=== PATIENT | female | born 1975 | race Caucasian/White ===

== ENCOUNTER 2016-08-03 19:16 | Emergency (ER) | payer MEDICAID ==
[2016-08-03] MEDS ORDERED: LORazepam 0.5 MG TABLET PO STA (21:15)
[2016-08-03] MEDS ORDERED: LORazepam 0.5 MG TABLET ONE (21:20)
[2016-08-03] MEDS ORDERED: POTASSIUM BICARB 25 MEQ TABLET PO STA (22:11)
[2016-08-03] MEDS ORDERED: POTASSIUM BICARB 25 MEQ TABLET PO ONE (22:11)
== END 2016-08-03 22:20 | disposition home or self-care (01) ==
DX: R07.9 Chest pain, unspecified (principal); E87.6 Hypokalemia; F41.9 Anxiety disorder, unspecified
CPT/HCPCS: 36415; 71010; 80053; 83690; 84484; 85025; 93005; 93010; 99283; 99284; A9270

== ENCOUNTER 2017-11-19 20:34 | Emergency (ER) | payer MEDICAID ==
[2017-11-19] MEDS ORDERED: methylPREDNISolone SUCCINATE 125 MG/2 ML VIAL IVP STA (20:44)
--- NOTE | 2017-11-19 20:45 | ED Physician Documentation ---
History of Present Illness - Stated complaint Stated Complaint: SOA/ALLERGIC REACTION - Chief complaint Chief Complaint: Allergic Rx - History obtained from History obtained from: Patient, Family - History of Present Illness Timing: Today Pain level max: 0 Pain level now: 0 Improved by: benadryl Worsened by: eating cherries - Additonal information Additional information: Patient is a 42-year-old female who presents to the emergency department stating that she feels short of breath and like her throat is swelling after eating cherries tonight. Has never had this reaction to cherries in the past. Did have a similar reaction to peaches in the past. Took Benadryl prior to arrival. Review of Systems Constitutional: denies: Fever, Chills Nose: denies: Rhinorrhea / runny nose, Congestion GI: denies: Vomiting, Diarrhea Skin: denies: Rash Musculoskeletal: denies: Neck pain, Back pain Neurologic: denies: Headache PD PAST MEDICAL HISTORY - Past Medical History Cardiovascular: None Respiratory: None Endocrine/Autoimmune: None GI: None DATAPOWER DEVELOPER: None : None HEENT: None Psych: Anxiety Musculoskeletal: None Derm: None - Past Surgical History Past Surgical History: Yes General: Cholecystectomy /DATAPOWER DEVELOPER: section - Present Medications Home Medications: Ambulatory Orders Medication Instructions Recorded Confirmed LORazepam [Ativan] 0.5 - 1 mg PO Q8HR PRN #14 tablet 08/03/16 predniSONE [Prednisone] 40 mg PO DAILY #6 tablet 11/19/17 - Allergies Allergies/Adverse Reactions: Allergies Allergy/AdvReac Type Severity Reaction Status Date / Time Sulfa (Sulfonamide Allergy Intermediate Hives Verified 11/19/17 20:42 Antibiotics) - Social History Does the pt smoke?: No Smoking Status: Never smoker Does the pt drink ETOH?: Yes Does the pt have substance abuse?: No - Immunizations Immunizations are current?: Yes - POLST Patient has POLST: No PD ED PE NORMAL - Vitals Vital signs reviewed: Yes - General General: Alert and oriented X 3, No acute distress - HEENT HEENT: Moist mucous membranes, Dentition benign - Neck Neck: Supple, no meningeal sign - Cardiac Cardiac: RRR, Strong equal pulses - Respiratory Respiratory: No respiratory distress, Clear bilaterally, Other (no stridor or wheezing.) - Abdomen Abdomen: Soft, Non tender, Non distended - Derm Derm: Warm and dry, No rash - Extremities Extremities: No edema, No calf tenderness / cord - Neuro Neuro: Alert and oriented X 3 - Psych Psych: Normal mood, Normal affect Results - Vitals Vitals: Vital Signs - 24 hr 11/19/17 11/19/17 11/19/17 20:39 21:05 21:49 Temperature 36.2 C L 36.7 C Heart Rate 118 H 83 75 Respiratory 18 16 18 Rate Blood Pressure 156/110 H 115/58 L 122/74 O2 Saturation 100 99 98 Oxygen O2 Source Room air PD MEDICAL DECISION MAKING - ED course Complexity details: re-evaluated patient, considered differential, d/w patient ED course: Patient is a 42-year-old female with what appears to be an allergic reaction to chersophie johnson. Took Benadryl prior to arrival. Given steroids here. Monitored in the emergency department without a recurrence of symptoms. No stridor or wheezing. No respiratory distress. Will continue supportive care and follow-up with her doctor. Will place her on steroids for the next few days as this was an ingested substance. Patient counseled regarding signs and symptoms for which I believe and urgent re-evaluation would be necessary. Patient with good understanding of and agreement to plan and is comfortable going home at this time This document was made in part using voice recognition software. While efforts are made to proofread this document, sound alike and grammatical errors may occur. Departure - Departure Disposition: 01 Home, Self Care Clinical Impression: Allergic reaction Qualifiers: Encounter type: initial encounter Qualified Code(s): T78.40XA - Allergy, unspecified, initial encounter Condition: Good Instructions: ED Allergic Reaction General Other Follow-Up: your,doctor in1 week [Other] Prescriptions: predniSONE [Prednisone] 40 mg PO DAILY #6 tablet Comments: Return if you worsen, Continue benadryl at home as well. Discharge Date/Time: 11/19/17 21:49
[2017-11-19 21:50] VITALS: BP 122/74
== END 2017-11-19 21:49 | disposition home or self-care (01) ==
LOC: ED 20:34
DX: T78.40XA Allergy, unspecified, initial encounter (principal); X58.XXXA Exposure to other specified factors, initial encounter
CPT/HCPCS: 96374; 99283

== ENCOUNTER 2017-12-17 23:29 | Outpatient (CLI) | payer MEDICAID | END 2017-12-17 23:59 | disposition critical access hospital (66) | LOC: EMS 23:29 | PROVIDERS: ATTEND Surgery | DX: R61 Generalized hyperhidrosis (principal) | CPT/HCPCS: A0425; A0429 ==

== ENCOUNTER 2017-12-17 23:43 | Emergency (ER) | payer MEDICAID ==
[2017-12-18 00:11] LABS: BASOPHILS # (AUTO) 0.1 10^3/uL (0.0-0.1); BASOPHILS % (AUTO) 1.1 %; EOSINOPHILS # (AUTO) 0.4 10^3/uL (0.0-0.7); EOSINOPHILS % (AUTO) 4.1 %; HGB - HEMOGLOBIN 11.9 g/dL (12.0-16.0); LYMPHOCYTES # (AUTO) 2.2 10^3/uL (1.5-3.5); LYMPHOCYTES % (AUTO) 25.5 %; MEAN CORPUSCULAR HEMOGLOBIN 31.7 pg (27.0-31.0); MEAN CORPUSCULAR HGB CONC 33.2 g/dL (32.0-36.0); MEAN CORPUSCULAR VOLUME 95.4 fL (81.0-99.0); MEAN PLATELET VOLUME 8.9 fL (7.9-10.8); MONOCYTES # (AUTO) 0.8 10^3/uL (0.0-1.0); MONOCYTES % (AUTO) 8.9 %; NEUTROPHILS # (AUTO) 5.3 10^3/uL (1.5-6.6); NEUTROPHILS % (AUTO) 60.4 %; PLT - PLATELET COUNT 276 10^3/uL (130-450); RED BLOOD COUNT 3.74 10^6/uL (4.20-5.40); RED CELL DISTRIBUTION WIDTH 12.7 % (12.0-15.0); WHITE BLOOD COUNT 8.7 x10^3/uL (4.8-10.8)
[2017-12-18 00:21] LABS: ALBUMIN 3.4 g/dL (3.2-5.5); ALBUMIN/GLOBULIN RATIO 1.1 (1.0-2.2); BILIRUBIN,TOTAL 0.4 mg/dL (0.2-1.0); CALCIUM 8.5 mg/dL (8.5-10.3); CREATININE 0.6 mg/dL (0.4-1.0); TOTAL PROTEIN 6.5 g/dL (6.7-8.2)
[2017-12-18] MEDS ORDERED: POTASSIUM BICARB 25 MEQ TABLET PO STA (00:40)
--- NOTE | 2017-12-18 00:53 | ED Physician Documentation ---
History of Present Illness - Stated complaint Stated Complaint: ALLERGIC REACTION, STRESS ANXIETY - Chief complaint Chief Complaint: General - History obtained from History obtained from: Patient, EMS - History of Present Illness Timing: Today - Additonal information Additional information: Patient is a 42 year old female with a history of anxiety who is presenting to the emergency department for an episode of dizziness, flushing and throat pressure. According to patient and ems patient had a flew glasses of wine this evening. patient subsequently experienced an episode where she felt flushed and dizzy. Patient also felt like her throat was closing. patient called a friend who stated she was breathing quickly. The friend called ems. Upon their arrival patient was feeling a bit better but wanted to get checked out. Upon my initial evaluation patient was well appearing in no distress. Review of Systems Ten Systems: 10 systems reviewed and negative Constitutional: denies: Fever, Chills Cardiac: reports: Palpitations Respiratory: denies: Dyspnea, Cough, Wheezing GI: denies: Nausea, Vomiting Psychiatric: reports: Anxiety PD PAST MEDICAL HISTORY - Past Medical History Past Medical History: Yes Cardiovascular: None Respiratory: None Endocrine/Autoimmune: None GI: Cholelithiasis FIRMWARE MANAGER: None : None HEENT: None Psych: Anxiety Musculoskeletal: None Derm: None - Past Surgical History Past Surgical History: Yes General: Cholecystectomy /FIRMWARE MANAGER: section - Allergies Allergies/Adverse Reactions: Allergies Allergy/AdvReac Type Severity Reaction Status Date / Time Sulfa (Sulfonamide Allergy Intermediate Hives Verified 12/17/17 23:48 Antibiotics) - Social History Does the pt smoke?: No Smoking Status: Never smoker Does the pt drink ETOH?: Yes Does the pt have substance abuse?: No - Immunizations Immunizations are current?: Yes - POLST Patient has POLST: No PD ED PE NORMAL - Vitals Vital signs reviewed: Yes - General General: Alert and oriented X 3, No acute distress, Well developed/nourished - HEENT HEENT: Atraumatic, PERRL, Other (no soft palate swelling) - Neck Neck: No JVD - Cardiac Cardiac: RRR, No murmur - Respiratory Respiratory: No respiratory distress - Abdomen Abdomen: Soft - Derm Derm: Normal color, Warm and dry - Extremities Extremities: No deformity, No edema, No calf tenderness / cord - Neuro Neuro: Alert and oriented X 3, No motor deficit, Normal speech Eye Opening: Spontaneous Motor: Obeys Commands Verbal: Oriented GCS Score: 15 - Psych Psych: Normal mood Results - Vitals Vitals: Vital Signs - 24 hr 12/17/17 12/18/17 23:44 00:47 Temperature 36.7 C Heart Rate 98 83 Respiratory 16 24 Rate Blood Pressure 135/87 H 124/90 H O2 Saturation 100 100 Oxygen O2 Source Room air - EKG (time done) 2351 Rate: Rate (enter#) (89) Rhythm: NSR [place]: Normal Intervals: Normal DC QRS: Normal Ischemia: Normal ST segments - Labs Labs: Laboratory Tests 12/18/17 12/18/17 12/18/17 00:00 00:00 00:00 WBC 8.7 RBC 3.74 L Hgb 11.9 L Hct 35.7 L MCV 95.4 MCH 31.7 H MCHC 33.2 RDW 12.7 Plt Count 276 MPV 8.9 Neut # (Auto) 5.3 Lymph # (Auto) 2.2 [place] # (Auto) 0.8 Eos # (Auto) 0.4 Baso # (Auto) 0.1 Absolute Nucleated RBC 0.00 Nucleated RBC % 0.0 Sodium 136 Potassium 2.8 L Chloride 104 Carbon Dioxide 23 Anion Gap 9.0 BUN 16 Creatinine 0.6 Estimated GFR (MDRD) 109 Glucose 102 H Calcium 8.5 Total Bilirubin 0.4 AST 19 ALT 27 Alkaline Phosphatase 111 Troponin I < 0.04 Total Protein 6.5 L Albumin 3.4 Globulin 3.1 Albumin/Globulin Ratio 1.1 Lipase 27 TSH Ethyl Alcohol 14.2 12/18/17 00:00 WBC RBC Hgb Hct MCV MCH MCHC RDW Plt Count MPV Neut # (Auto) Lymph # (Auto) [place] # (Auto) Eos # (Auto) Baso # (Auto) Absolute Nucleated RBC Nucleated RBC % Sodium Potassium Chloride Carbon Dioxide Anion Gap BUN Creatinine Estimated GFR (MDRD) Glucose Calcium Total Bilirubin AST ALT Alkaline Phosphatase Troponin I Total Protein Albumin Globulin Albumin/Globulin Ratio Lipase TSH 6.21 H Ethyl Alcohol PD MEDICAL DECISION MAKING - ED course Complexity details: reviewed old records, reviewed results, re-evaluated patient , considered differential, d/w patient, d/w family ED course: patient was seen and examined at bedside. ekg was performed and was within normal limits. labs were drawn. patient was found to have slightly low potassium but no ekg changes. patient's potassium was replaced. patient had a slightly elevated tsh, which would not acute for her symptoms. Patient was made aware of the findings. patient continued to be well appearing and required no further work up. Patient was stable for discharge with outpatient follow up. - Sepsis Event Vital Signs: Vital Signs - 24 hr 12/17/17 12/18/17 23:44 00:47 Temperature 36.7 C Heart Rate 98 83 Respiratory 16 24 Rate Blood Pressure 135/87 H 124/90 H O2 Saturation 100 100 Oxygen O2 Source Room air Departure - Departure Disposition: 01 Home, Self Care Clinical Impression: Dizziness, Hypokalemia Condition: Good Instructions: Hypokalemia Dc Follow-Up: primary,care provider [Other] Comments: Your diagnostics today were mostly within normal limits. Your potassium was slightly low, and your thyroid hormone levels are slightly low. It is important that you eat a high potassium diet. It is difficult to say what caused your symptoms exactly, it could be the alcohol, anxiety, perimenipausal or combination of multiple things. You should follow up with your doctor this week. You may return to the emergency department at any time for new, worsening or uncontrollable symptoms.
[2017-12-18 01:04] VITALS: BP 117/77
== END 2017-12-18 01:08 | disposition home or self-care (01) ==
LOC: EDUNIT# → ED 23:43
DX: E87.6 Hypokalemia (principal); R42 Dizziness and giddiness
CPT/HCPCS: 36415; 80053; 80320; 83690; 84443; 84484; 85025; 93005; 99283; A9270

== ENCOUNTER 2018-01-05 08:00 | Outpatient (CLI) | payer MEDICAID ==
[2018-01-05 12:31] LABS: BASOPHILS % (AUTO) 0.8 %; EOSINOPHILS # (AUTO) 0.3 10^3/uL (0.0-0.7); EOSINOPHILS % (AUTO) 5.3 %; HGB - HEMOGLOBIN 12.6 g/dL (12.0-16.0); LYMPHOCYTES % (AUTO) 32.4 %; MEAN CORPUSCULAR HEMOGLOBIN 32.2 pg (27.0-31.0); MEAN CORPUSCULAR HGB CONC 33.2 g/dL (32.0-36.0); MEAN CORPUSCULAR VOLUME 96.9 fL (81.0-99.0); MEAN PLATELET VOLUME 9.9 fL (7.9-10.8); MONOCYTES # (AUTO) 0.4 10^3/uL (0.0-1.0); NEUTROPHILS # (AUTO) 3.3 10^3/uL (1.5-6.6); NEUTROPHILS % (AUTO) 54.5 %; PLT - PLATELET COUNT 250 10^3/uL (130-450); RED BLOOD COUNT 3.93 10^6/uL (4.20-5.40); RED CELL DISTRIBUTION WIDTH 12.9 % (12.0-15.0); WHITE BLOOD COUNT 6.1 x10^3/uL (4.8-10.8)
[2018-01-05 12:42] LABS: ALBUMIN 3.5 g/dL (3.2-5.5); ALKALINE PHOSPHATASE 107 IU/L (42-121); ALT ALANINE AMINOTRANSFERASE 16 IU/L (10-60); AST ASPARTATE AMINOTRANSFERASE 16 IU/L (10-42); BILIRUBIN,TOTAL 0.7 mg/dL (0.2-1.0); BUN - BLOOD UREA NITROGEN 16 mg/dL (6-20); CALCIUM 8.6 mg/dL (8.5-10.3); CARBON DIOXIDE - CO2 28 mmol/L (21-32); CHLORIDE 105 mmol/L (101-111); CHOLESTEROL 204 mg/dL; CREATININE 0.7 mg/dL (0.4-1.0); GFR - MDRD 91 (>89); GLUCOSE 97 mg/dL (70-100); HDL CHOLESTEROL 67 mg/dL; LDL CHOLESTEROL,CALCULATED 120 mg/dL; LDL/HDL RATIO 1.8 (<4.4); SODIUM 138 mmol/L (135-145); VLDL CHOLESTEROL 17 mg/dL
[2018-01-05 12:53] LABS: THYROID STIMULATING HORMONE 3.39 uIU/mL (0.34-5.60)
[2018-01-05 12:56] LABS: FREE T4 (FREE THYROXINE) 0.88 ng/dL (0.58-1.64)
== END 2018-01-05 08:01 | disposition home or self-care (01) ==
LOC: LAB.N 08:00
PROVIDERS: ATTEND Family Medicine
DX: E87.6 Hypokalemia (principal); E66.9 Obesity, unspecified; E03.9 Hypothyroidism, unspecified
CPT/HCPCS: 36415; 80053; 80061; 83721; 84439; 84443; 84481; 85025

== ENCOUNTER 2018-03-09 08:22 | Outpatient (CLI) | payer MEDICAID ==
--- NOTE | 2018-03-15 10:33 | Mammography Report ---
Reason: SCREENING EXAM FOR BREAST CANCER Procedure Date: 03/09/2018 Accession Number: [id number] / [id number] Procedure: [facility] - Screening Mammo Dig Bilat CPT Code: FULL RESULT: EXAM: Screening Mammo Dig Bilat DATE: 03/09/2018 8:50 AM CLINICAL HISTORY: 43-year-old female with history of early menses. TECHNIQUE: Bilateral CC and MLO views were obtained. COMPARISON: 12/06/2014 and 12/03/2014. FINDINGS: The breasts demonstrate scattered fibroglandular densities bilaterally. No suspicious masses, clustered microcalcifications, or regions of architectural distortion are identified. IMPRESSION: Negative examination RECOMMENDATION: Routine annual screening unless otherwise clinically indicated. BIRADS CATEGORY 1: Negative STANDARD QUALIFYING STATEMENTS: 1. This examination was not reviewed with the aid of Computer-Aided Detection (CAD). 2. A negative or benign imaging report should not delay biopsy if clinically suspicious findings are present. Consider surgical consultation if warrented. More than 5% of cancers are not identified by imaging. 3. Dense breasts may obscure an underlying neoplasm.
== END 2018-03-09 08:23 | disposition home or self-care (01) ==
LOC: DI 08:22
PROVIDERS: ATTEND Family Medicine
DX: Z12.31 Encounter for screening mammogram for malignant neoplasm of breast (principal)
CPT/HCPCS: 77067

== ENCOUNTER 2018-05-13 07:15 | Outpatient (CLI) | payer MEDICAID ==
--- NOTE | 2018-05-13 08:32 | Ultrasound Report ---
Reason: ABDOMINAL PAIN, RUQ Procedure Date: 05/13/2018 Accession Number: [id number] / [id number] Procedure: US - Abdomen Complete CPT Code: FULL RESULT: EXAM: ABDOMEN ULTRASOUND EXAM DATE: 05/13/2018 07:58 AM. CLINICAL HISTORY: ABDOMINAL PAIN, RUQ. COMPARISON: CT abdomen and pelvis 12/30/2009. TECHNIQUE: Real-time scanning was performed with static images obtained. FINDINGS: Liver: Mildly hyperechoic. 17.3 cm. Main portal vein flow: Hepatopetal. Gallbladder: Cholecystectomy Biliary System: Common bile duct measures 7 mm. No intrahepatic or extrahepatic ductal dilatation. Pancreas: Visualized portion is unremarkable. Kidneys: Right: 9.8 cm longitudinally. Normal. No contour-deforming mass, stones, or hydronephrosis. Left: 9.2 cm longitudinally. Normal. No contour-deforming mass, stones, or hydronephrosis. Spleen: 8.9 cm. Normal in size and echotexture. Aorta and Inferior Vena Cava: Unremarkable. Other: None. IMPRESSION: Hepatic steatosis RADIA
== END 2018-05-13 07:16 | disposition home or self-care (01) ==
LOC: DI 07:15
PROVIDERS: ATTEND Nurse Practitioner
DX: K76.0 Fatty (change of) liver, not elsewhere classified (principal); R10.11 Right upper quadrant pain
CPT/HCPCS: 76700

== ENCOUNTER 2018-08-22 21:56 | Outpatient (CLI) | payer MEDICAID ==
--- NOTE | 2018-08-23 10:38 | Ultrasound Report ---
Reason: MENORRHEA,PREMENOPAUSAL Procedure Date: 08/22/2018 Accession Number: [id number] / [id number] Procedure: US - Pelvic w/Transvaginal CPT Code: FULL RESULT: EXAM: PELVIC ULTRASOUND EXAM DATE: 08/22/2018 10:26 PM. CLINICAL HISTORY: Menorrhea, premenopausal. COMPARISON: None. TECHNIQUE: Realtime transabdominal pelvic scan performed to identify the uterus and adnexa and as an overview of other pelvic structures, followed by transvaginal scan to provide greater detail of the uterus and adnexa, with static image documentation. FINDINGS: Uterus: 10.6 x 11.5 x 5.5 cm, volume 137.9 cc. Anteverted position. Normal overall size and echotexture. Masses: None. Endometrium: 8 mm. Normal. Cervix: No mass. Incidental nabothian cyst. Right Ovary: 3 x 1.8 x 2.4 cm, volume 6.5 cc. Normal echotexture and blood flow. 1.8 cm dominant right ovarian follicle. No concerning features. Left Ovary: 1.4 x 1.8 x 1.5 cm, volume 2.1 cc. Normal echotexture and blood flow. 1 x 0.8 x 0.7 cm dominant left ovarian follicle. No concerning features. Free Fluid: None. Other: None. IMPRESSION: 1. Bilateral ovarian follicles. Both ovaries and adnexa are normal. 2. Normal uterus and endometrium. RADIA
== END 2018-08-22 21:57 | disposition home or self-care (01) ==
LOC: DI 21:56
PROVIDERS: ATTEND Obstetrics & Gynecology
DX: N92.4 Excessive bleeding in the premenopausal period (principal)
CPT/HCPCS: 76830; 76856

== ENCOUNTER 2018-10-10 16:41 | Outpatient (CLI) | payer MEDICAID ==
[2018-10-10 17:07] LABS: HCG UR QUAL NEGATIVE
[2018-10-10 17:11] LABS: CALCIUM 8.9 mg/dL (8.5-10.3); CREATININE 1.1 mg/dL (0.4-1.0)
== END 2018-10-10 16:42 | disposition home or self-care (01) ==
LOC: LAB 16:41
PROVIDERS: ATTEND Obstetrics & Gynecology
DX: N92.0 Excessive and frequent menstruation with regular cycle (principal)
CPT/HCPCS: 36415; 80048; 81025; 86850; 86900; 86901

== ENCOUNTER 2018-10-12 06:06 | Day surgery (SDC) | payer MEDICAID ==
[2018-10-12] MEDS ORDERED: ceFAZolin 2 GM/50 ML 2 GM/50 ML BAG IV ONE (06:39)
[2018-10-12] MEDS ORDERED: LACTATED RINGERS 1,000 ML IV ONE ×2 (06:49→10:50)
--- NOTE | 2018-10-12 07:39 | ANESTHESIA ---
Pre-Anesthesia VS, & Labs - Diagnosis desires sterilization, menorrhagia - Procedure laparoscopic salphingectomy, endometrial ablation with novasure Vital Signs: Temp Pulse Resp BP Pulse Ox 36.4 C L 74 16 124/86 H 98 10/12/18 06:34 10/12/18 06:34 10/12/18 06:34 10/12/18 06:34 10/12/18 06:34 Height 5 ft 3 in Weight (kg) 86.8 kg Body Mass Index 37.3 - NPO >8 hours - Is Patient ?: No Home Medications and Allergies Home Medications: Ambulatory Orders Ibuprofen 2 - 3 tab PO Q6H PRN 10/03/18 Multivitamin [Multiple Vitamins] 1 each PO DAILY 10/03/18 Ibuprofen 2 - 3 tab PO Q6H PRN 10/03/18 Multivitamin [Multiple Vitamins] 1 each PO DAILY 10/03/18 Allergies/Adverse Reactions: Allergies Allergy/AdvReac Type Severity Reaction Status Date / Time Sulfa (Sulfonamide Allergy Intermediate Anaphylaxis Verified 10/12/18 07:11 Antibiotics) Anes History & Medical History - Anesthetic History Anesthesia Complications: reports: No previous complications - Medical History Cardiovascular: reports: None Pulmonary: reports: None Gastrointestinal: reports: GERD, Other Urinary: reports: None Musculoskeletal: reports: Chronic back pain Endocrine/Autoimmune: reports: None Blood Disorders: reports: None Skin: reports: None Smoking Status: Never smoker - Surgical History General: Cholecystectomy Gynecologic: section Exam General: Alert Dental: WNL Mouth Opening: Greater than 4 Fingerbreadths Neck Mobility: Normal Mallampati classification: I Thyromental Distance: greater than 6 cm Respiratory: Lungs clear Cardiovascular: Regular rate, Normal S1, Normal S2 Plan Anesthesia Type: General Consent for Procedure(s) Verified and Reviewed: Yes Code Status: Attempt Resuscitation ASA classification: 2-Mild systemic disease Is this case an emergency?: No
[2018-10-12] MEDS ORDERED: BUPIVACAINE 0.25%-EPI 1:200000 PF 30 ML VIAL ONE (07:41)
[2018-10-12] MEDS ORDERED: LIDOCAINE-MPF 1% 30 ML VIAL ONE (07:42)
[2018-10-12] MEDS ORDERED: BUPIVACAINE 0.25%-EPI 1:200000 PF 30 ML VIAL SUBQ ONE ×2 (08:15)
[2018-10-12] MEDS ORDERED: LIDOCAINE 1% 50 ML MDV SUBQ ONE (08:16)
[2018-10-12] MEDS ORDERED: KETOROLAC 30 MG/ML VIAL IVP ONE (09:07)
[2018-10-12] MEDS ORDERED: PROPOFOL 200 MG/20 ML VIAL IVP ONE (09:07)
[2018-10-12] MEDS ORDERED: DEXAMETHASONE 4 MG/ML VIAL IVP ONE (09:07)
[2018-10-12] MEDS ORDERED: fentaNYL 100 MCG/2 ML VIAL IVP ONE (09:07)
[2018-10-12] MEDS ORDERED: ONDANSETRON 4 MG/2 ML VIAL IVP ONE (09:07)
[2018-10-12] MEDS ORDERED: NEOSTIGMINE 1 MG/1 ML 10 ML MDV IVP ONE (09:07)
[2018-10-12] MEDS ORDERED: LIDOCAINE-MPF 2% 5 ML VIAL IM ONE (09:07)
[2018-10-12] MEDS ORDERED: ROCURONIUM 50 MG/5 ML VIAL IVP ONE (09:07)
[2018-10-12] MEDS ORDERED: GLYCOPYRROLATE 1 MG/5 ML VIAL IVP ONE (09:07)
[2018-10-12] MEDS ORDERED: MIDAZOLAM 2 MG/2 ML VIAL IVP ONE (09:07)
[2018-10-12] MEDS ORDERED: ACETAMINOPHEN 1,000 MG/100 ML 100 ML IV ONE (10:43)
[2018-10-12] MEDS ORDERED: LORazepam 2 MG/ML VIAL IVP PRN (10:45)
[2018-10-12] MEDS ORDERED: ONDANSETRON 4 MG/2 ML VIAL IVP PRN (10:45)
[2018-10-12] MEDS ORDERED: oxyCODONE 5 MG TABLET PO PRN (10:45)
[2018-10-12] MEDS ORDERED: HYDROcod/ACETAM 10 MG/325 MG TABLET PO PRN (10:45)
[2018-10-12] MEDS ORDERED: HYDROmorphone 0.5 MG/0.5 ML SYRINGE IVP PRN (10:45)
--- NOTE | 2018-10-12 10:56 | OPERATIVE REPORT ---
Operative Report - General Procedure Date: 10/12/18 Planned Procedure: Laproscopic Bilateral Salpingectomy with Endometrial Ablation Pre-Op Diagnosis: Menorrhagia Procedure Performed: Laproscopic Bilateral Salpingectomy with Endometrial Ablation Post Op Diagnosis: Menorrhagia - Procedure Note Primary Surgeon: Sheng Costa MD Anesthesia Provider: Rc Mitchell CRNA Anesthesia Technique: General ET tube Pathology: bilateral tubes Estimated Blood Loss (mL): 5 Findings: Adhesion of the uterus to the lower pelvic wall - Other Other Information/Narrative: [id number]
[2018-10-12] MEDS ORDERED: HYDROcod/ACETAM 10 MG/325 MG TABLET ONE (11:28)
[2018-10-12 11:57] VITALS: BP 148/90
--- NOTE | 2018-10-12 12:19 | OPERATIVE REPORT ---
DATE OF SERVICE: 10/12/2018 Physician: Sheng Costa MD PREOPERATIVE DIAGNOSIS: Menorrhagia. POSTOPERATIVE DIAGNOSIS: Menorrhagia. PROCEDURE PERFORMED: Bilateral salpingectomy with MyoSure endometrial ablation. SURGEON: Sheng Costa MD. ANESTHESIA: General via endotracheal tube. WEED THINNER: Rc Mitchell CRNA. TISSUES TO PATHOLOGY: Bilateral fallopian tubes. ESTIMATED BLOOD LOSS: 5 mL. FINDINGS: Upon entering the abdominal cavity, there was evidence of adhesions of the uterus to the l ower pelvis. These were quite dense. There were some filmy adhesions involving the left colon, as w ell as adnexa. These were taken down both bluntly. DESCRIPTION OF PROCEDURE: Following adequate endotracheal anesthesia, the patient was placed in the dorsal lithotomy position. She was then prepped and draped in the usual fashion following a pelvic e xamination. A timeout was performed, in which concerns were addressed. At this point, a speculum wa s placed, vagina and cervix visualized, grasped with a single-tooth tenaculum. The uterus was then d ilated to 8 mm, following which a HUMI uterine manipulator was placed, and the balloon inflated. At this point, the casting and curing operator's gloves were changed and then following local anesthesia with 0.25% Chente irene with epinephrine, a subumbilical incision was made in the vertical orientation. A trocar and sh eath were placed in the abdominal cavity on first pass. The abdomen was insufflated with carbon diox rachel. There was no evidence of any injury at the site of insertion. Two additional ports were placed at both the left and right lower quadrants. These were done following 0.25% Marcaine with epinephri ne as well as the skin incision, and under direct visualization. At this point, the pelvis was inspe cted. The patient was placed in Trendelenburg. There was evidence of adhesions of the colon on the left hand side. These were bluntly taken down as well as the lower portion of the uterus on the lowe r pelvis. Because of the density of these adhesions, we decided not to take these down, as they woul d probably cause more postop pain. At this point, the fallopian tube was grasped at the cornua with a LigaSure, and then utilizing this device, it was cauterized, transected, all the way to the fimbriated end, down to the ovary. Care wa s taken to try and avoid injury or damage to the ovarian vessels. At this point, the fallopian tube was brought through the 5 mm port. The right tube and ovary were then grasped at its fimbriated end, and then transected utilizing the LigaSure. Care was once again taken to try and stay as close to t he tube as possible to avoid compromise of the ovarian vessels. This was carried all the way to the cornua. The fallopian tube was then brought through the 5 mm port. The areas were inspected for ble eding, none was noted. At this time, the trocars were left in place. The CO2 was allowed to escape. Attention was then loan nged to the vagina. The cervix was visualized. It was sounded to 9 cm. The internal os was determi nabeel to be roughly 3 cm. The NovaSure was then set with the appropriate settings. The uterine width was 3.3 cm, the uterine depth was 6 cm. The total time of ablation was 1 minute and 12 seconds. The machine automatically shut off. It was removed. At this point, the laparoscope was reinserted and the pelvis inspected. There was no evidence of any injury, so the CO2 was allowed to escape, and then the incisions were closed using 4-0 Monocryl subc uticular, and Dermabond was placed. The patient tolerated the procedure well and was taken to recove ry in stable condition. Sponge and needle counts were correct. TD: 10/12/2018 11:16
== END 2018-10-12 06:07 | disposition home or self-care (01) ==
LOC: SDS 06:06
PROVIDERS: ATTEND Obstetrics & Gynecology
PROC: 0DNW4ZZ Release Peritoneum, Percutaneous Endoscopic Approach (ICD-10-PCS; 2018-10-12)
PROC: 0UT74ZZ Resection of Bilateral Fallopian Tubes, Percutaneous Endoscopic Approach (ICD-10-PCS; principal; 2018-10-12 07:30)
PROC: 0U5B8ZZ Destruction of Endometrium, Via Natural or Artificial Opening Endoscopic (ICD-10-PCS; 2018-10-12 07:30)
DX: Z30.2 Encounter for sterilization (principal); N92.0 Excessive and frequent menstruation with regular cycle; N99.4 Postprocedural pelvic peritoneal adhesions; F41.9 Anxiety disorder, unspecified; G89.29 Other chronic pain; M54.9 Dorsalgia, unspecified; Z90.49 Acquired absence of other specified parts of digestive tract; Z87.19 Personal history of other diseases of the digestive system
CPT/HCPCS: 58563; 58661; A9270; J0131; J0690; J7120

== ENCOUNTER 2018-10-18 08:00 | Outpatient (CLI) | payer MEDICAID | END 2018-10-18 23:59 | disposition home or self-care (01) | LOC: LAB.R 08:00 | PROVIDERS: ATTEND Obstetrics & Gynecology | DX: L29.8 Other pruritus (principal); Z98.51 Tubal ligation status; Z98.890 Other specified postprocedural states | CPT/HCPCS: 87480; 87510; 87660 ==

== ENCOUNTER 2019-02-21 22:01 | Emergency (ER) | payer MEDICAID ==
--- NOTE | 2019-02-21 22:31 | ED Physician Documentation ---
PD HPI ABD PAIN - Stated complaint Stated Complaint: RT FLANK PX/NAUSEA/TENSE/COLD - Chief complaint Chief Complaint: General - History obtained from History obtained from: Patient - History of Present Illness Timing - onset: Today (this morning) Timing - details: Gradual onset Pain level now: 2 Quality: Pain Location: RUQ Radiation: Right flank Improved by: Other (nothing) Worsened by: Other (no exacerbating factors) Associated symptoms: Nausea (this morning but has resolved). No: Fever, Diarrhea, Constipation Similar symptoms before: Has not had sx before - Additional information Additional information: c/o right flank pain, hot flash throughout my whole body, nausea (resolved), fatigue. started feeling unwell this morning Review of Systems Constitutional: reports: Fatigue. denies: Fever, Chills, Myalgias, Sweats Cardiac: reports: Reviewed and negative Respiratory: reports: Reviewed and negative GI: reports: Abdominal Pain, Nausea (resolved). denies: Vomiting : denies: Dysuria, Frequency Musculoskeletal: reports: Back pain (right flank) PD PAST MEDICAL HISTORY - Past Medical History Past Medical History: Yes Cardiovascular: None Respiratory: None Neuro: None Endocrine/Autoimmune: None GI: GERD, Other FUR IRONER: None : None HEENT: Chronic vision loss Psych: Depression, Anxiety, Panic attacks Musculoskeletal: Chronic back pain Derm: None - Past Surgical History Past Surgical History: Yes General: Cholecystectomy /FUR IRONER: section - Present Medications Home Medications: Ambulatory Orders Medication Instructions Recorded Confirmed Ibuprofen 2 - 3 tab PO Q6H PRN 10/03/18 10/12/18 Multivitamin [Multiple Vitamins] 1 each PO DAILY 10/03/18 10/12/18 - Allergies Allergies/Adverse Reactions: Allergies Allergy/AdvReac Type Severity Reaction Status Date / Time Sulfa (Sulfonamide Allergy Intermediate Anaphylaxis Verified 02/21/19 22:12 Antibiotics) - Social History Does the pt smoke?: No Smoking Status: Never smoker Does the pt drink ETOH?: Yes Does the pt have substance abuse?: No - Immunizations Immunizations are current?: Yes - POLST Patient has POLST: No PD ED PE NORMAL - Vitals Vital signs reviewed: Yes - General General: Alert and oriented X 3, No acute distress, Well developed/nourished - HEENT HEENT: Moist mucous membranes - Cardiac Cardiac: RRR, No murmur - Respiratory Respiratory: No respiratory distress, Clear bilaterally - Abdomen Abdomen: Soft, Non tender - Back Back: No CVA TTP - Derm Derm: Normal color, Warm and dry - Extremities Extremities: No edema Results - Vitals Vitals: Oxygen O2 Source Room air - Labs Labs: Laboratory Tests 02/21/19 02/21/19 02/21/19 22:50 22:53 22:53 WBC 10.3 RBC 4.46 Hgb 14.4 Hct 42.4 MCV 95.1 MCH 32.3 H MCHC 34.0 RDW 11.6 L Plt Count 302 MPV 10.8 Neut # (Auto) 6.3 Lymph # (Auto) 2.8 [place] # (Auto) 0.8 Eos # (Auto) 0.2 Baso # (Auto) 0.1 Absolute Nucleated RBC 0.00 Nucleated RBC % 0.0 Sodium 139 Potassium 3.7 Chloride 102 Carbon Dioxide 28 Anion Gap 9.0 BUN 13 Creatinine 0.8 Estimated GFR (MDRD) 78 L Glucose 122 H Calcium 9.5 Total Bilirubin 0.6 AST 16 ALT 15 Alkaline Phosphatase 120 Total Protein 8.2 Albumin 4.3 Globulin 3.8 Albumin/Globulin Ratio 1.1 Lipase 27 Urine Color YELLOW Urine Clarity CLEAR Urine pH 6.5 Ur Specific [place] <=1.005 Urine Protein NEGATIVE Urine Glucose (UA) NEGATIVE Urine Ketones NEGATIVE Urine Occult Blood SMALL H Urine Nitrite NEGATIVE Urine Bilirubin NEGATIVE Urine Urobilinogen 0.2 (NORMAL) Ur Leukocyte Esterase NEGATIVE Urine RBC 0-5 Urine WBC 0-3 Ur Squamous Epith Cells MOD Squamous H Urine Bacteria Rare Ur Microscopic Review INDICATED Urine Culture Comments NOT INDICATED PD MEDICAL DECISION MAKING - ED course Complexity details: reviewed results, re-evaluated patient, considered differential, d/w patient Departure - Departure Disposition: 01 Home, Self Care Clinical Impression: Flank pain, Malaise and fatigue Condition: Good Instructions: ED Flank Pain Uncertain Cause, ED Weakness UKO Discharge Date/Time: 02/22/19 00:33
[2019-02-21 22:59] LABS: BILIRUBIN,URINE NEGATIVE (NEGATIVE); GLUCOSE, URINE (UA) NEGATIVE (NEGATIVE); KETONES,URINE (UA) NEGATIVE (NEGATIVE); LEUKOCYTE ESTERASE, URINE NEGATIVE (NEGATIVE); NITRITE,URINE NEGATIVE (NEGATIVE); OCCULT BLOOD,URINE SMALL (NEGATIVE); PH,URINE 6.5 PH (5.0-7.5); PROTEIN,URINE NEGATIVE (NEGATIVE); UROBILINOGEN,URINE 0.2 (NORMAL) E.U./dL (NORMAL)
[2019-02-21 22:59] LABS: BASOPHILS # (AUTO) 0.1 10^3/uL (0.0-0.1); BASOPHILS % (AUTO) 0.6 %; EOSINOPHILS # (AUTO) 0.2 10^3/uL (0.0-0.7); EOSINOPHILS % (AUTO) 1.9 %; HGB - HEMOGLOBIN 14.4 g/dL (12.0-16.0); LYMPHOCYTES # (AUTO) 2.8 10^3/uL (1.5-3.5); LYMPHOCYTES % (AUTO) 27.5 %; MEAN CORPUSCULAR HEMOGLOBIN 32.3 pg (27.0-31.0); MEAN CORPUSCULAR VOLUME 95.1 fL (81.0-99.0); MEAN PLATELET VOLUME 10.8 fL (7.9-10.8); MONOCYTES # (AUTO) 0.8 10^3/uL (0.0-1.0); NEUTROPHILS # (AUTO) 6.3 10^3/uL (1.5-6.6); NEUTROPHILS % (AUTO) 61.6 %; PLT - PLATELET COUNT 302 10^3/uL (130-450); RED BLOOD COUNT 4.46 10^6/uL (4.20-5.40); RED CELL DISTRIBUTION WIDTH 11.6 % (12.0-15.0); WHITE BLOOD COUNT 10.3 x10^3/uL (4.8-10.8)
[2019-02-21 23:06] LABS: BACTERIA,URINE Rare /HPF (None Seen); CLARITY,URINE CLEAR (CLEAR); RBC,URINE 0-5 /HPF (0-5); SQUAMOUS EPITHELIAL CELL,UR MOD Squamous (<= Few)
[2019-02-21 23:12] LABS: ALBUMIN 4.3 g/dL (3.2-5.5); ALBUMIN/GLOBULIN RATIO 1.1 (1.0-2.2); BILIRUBIN,TOTAL 0.6 mg/dL (0.2-1.0); CALCIUM 9.5 mg/dL (8.5-10.3); CREATININE 0.8 mg/dL (0.4-1.0); TOTAL PROTEIN 8.2 g/dL (6.7-8.2)
[2019-02-21 23:55] VITALS: BP 117/78
== END 2019-02-22 00:33 | disposition home or self-care (01) ==
LOC: ED 22:01
DX: R10.11 Right upper quadrant pain (principal); R11.0 Nausea; R53.81 Other malaise; R53.83 Other fatigue
CPT/HCPCS: 36415; 80053; 81001; 81003; 83690; 85025; 87086; 99283; 99284

== ENCOUNTER 2019-07-11 14:42 | Outpatient (CLI) | payer MEDICAID ==
[2019-07-11 16:22] LABS: FOLLICLE STIMULATING HORMONE 12.54 mIU/mL
[2019-07-11 16:23] LABS: LUTEINIZING HORMONE 7.42 mIU/mL
== END 2019-07-11 14:43 | disposition home or self-care (01) ==
LOC: LAB 14:42
PROVIDERS: ATTEND Obstetrics & Gynecology
DX: N95.1 Menopausal and female climacteric states (principal)
CPT/HCPCS: 36415; 82670; 83001; 83002

== ENCOUNTER 2019-07-12 08:00 | Outpatient (CLI) | payer MEDICAID ==
[2019-07-12 21:08] LABS: CANDIDA GROUP DNA POSITIVE (NEGATIVE); CANDIDA KRUSEI DNA NEGATIVE (NEGATIVE); TRICHOMONAS VAGINALIS DNA NEGATIVE (NEGATIVE)
== END 2019-07-12 23:59 | disposition home or self-care (01) ==
LOC: LAB.R 08:00
PROVIDERS: ATTEND Obstetrics & Gynecology
DX: L29.8 Other pruritus (principal)
CPT/HCPCS: 87661; 87801

== ENCOUNTER 2019-08-16 07:42 | Outpatient (CLI) | payer MEDICAID ==
--- NOTE | 2019-08-23 08:24 | Mammography Report ---
Reason: ROUTINE MAMMO Procedure Date: 08/16/2019 Accession Number: [id number] / [id number] Procedure: [facility] - Screening Mammo w/Casey CPT Code: Final Report FULL RESULT: EXAM: Screening Mammo w/Casey DATE: 08/16/2019 8:47 AM CLINICAL HISTORY: Screening encounter. History of early menses. TECHNIQUE: (B) - Bilateral CC and MLO views were obtained. COMPARISON: 03/09/2018 through 12/03/2014. PARENCHYMAL PATTERN: (D) - The breast(s) demonstrate(s) heterogeneously dense fibroglandular parenchyma. FINDINGS: There are no suspicious masses, calcifications, or areas of distortion. IMPRESSION: Negative examination. BI-RADS category 1. RECOMMENDATION: (ANNUAL) - Recommend routine annual screening mammography. BI-RADS CATEGORY: (1) - Negative. STANDARD QUALIFYING STATEMENTS: 1. This examination was not reviewed with the aid of Computer-Aided Detection (CAD). 2. A negative or benign imaging report should not preclude biopsy if clinically suspicious findings are present. 3. Dense breasts may obscure an underlying neoplasm. 4. This examination was reviewed with the aid of 3D breast imaging (tomosynthesis).
== END 2019-08-16 07:43 | disposition home or self-care (01) ==
LOC: DI 07:42
DX: Z12.31 Encounter for screening mammogram for malignant neoplasm of breast (principal)
CPT/HCPCS: 77063; 77067

== ENCOUNTER 2020-05-20 20:43 | Outpatient (CLI) | payer MEDICAID ==
--- NOTE | 2020-05-21 10:51 | XRAY Report ---
PROCEDURE: Calcaneus LT INDICATIONS: HEEL PAIN, LEFT TECHNIQUE: Two views of the calcaneus were acquired. COMPARISON: None available. FINDINGS: Bones: No fractures or dislocations. No suspicious bony lesions. Soft tissues: No suspicious calcifications. Achilles tendon appears normal. IMPRESSION: No trauma found. Small plantar fascial insertion spur at the posterior calcaneus incidentally noted. Reviewed by: Danilo Soriano MD on 05/21/2020 10:49 AM [facility] Approved by: Danilo Soriano MD on 05/21/2020 10:49 AM [facility] Station ID: [id number]
== END 2020-05-20 20:44 | disposition home or self-care (01) ==
LOC: DI 20:43
PROVIDERS: ATTEND Nurse Practitioner Family
DX: M79.672 Pain in left foot (principal)

== ENCOUNTER 2020-09-03 08:13 | Outpatient (CLI) | payer MEDICAID ==
--- NOTE | 2020-09-04 15:07 | Mammography Report ---
BILATERAL DIGITAL SCREENING MAMMOGRAM 3D/2D: 09/03/2020 CLINICAL: Routine screening. Comparison is made to exams dated: 08/16/2019 mammogram, 03/09/2018 mammogram, and 12/03/2014 mammogram - . The tissue of both breasts is heterogeneously dense. This may lower the sensitivity of mammography. No significant masses, calcifications, or other findings are seen in either breast. There has been no significant interval change. IMPRESSION: NEGATIVE There is no mammographic evidence of malignancy. A 1 year screening mammogram is recommended. This exam was interpreted at Station ID: [id number]. NOTE: For mammograms, a report in lay terms will be sent to the patient. Approximately 15% of breast malignancies will not be visualized mammographically. In the management of a palpable breast mass, a negative mammogram must not discourage biopsy of a clinically suspicious lesion. Electronically Signed By: Ephraim Walker M.D. ar/penrad:09/03/2020 13:08:50 ACR BI-RADS Category 1: Negative 3341F PARENCHYMAL PATTERN: (D) - The breast(s) demonstrate(s) heterogeneously dense fibroglandular juanito ford. BI-RADS CATEGORY: (1) - 1 RECOMMENDATION: (ANNUAL) - Recommend routine annual screening mammography. [id number] 1 year screening LATERALITY: (B)
== END 2020-09-03 08:14 | disposition home or self-care (01) ==
LOC: DI.N 08:13
DX: Z12.31 Encounter for screening mammogram for malignant neoplasm of breast (principal)

== ENCOUNTER 2021-05-06 08:09 | Emergency (ER) | payer MEDICAID ==
[2021-05-06 08:42] LABS: BASOPHILS % (AUTO) 0.5 %; EOSINOPHILS # (AUTO) 0.1 10^3/uL (0.0-0.7); EOSINOPHILS % (AUTO) 0.9 %; HCT - HEMATOCRIT 41.5 % (37.0-47.0); LYMPHOCYTES # (AUTO) 2.4 10^3/uL (1.5-3.5); LYMPHOCYTES % (AUTO) 31.9 %; MEAN CORPUSCULAR HEMOGLOBIN 31.7 pg (27.0-31.0); MEAN CORPUSCULAR HGB CONC 33.7 g/dL (32.0-36.0); MEAN CORPUSCULAR VOLUME 93.9 fL (81.0-99.0); MEAN PLATELET VOLUME 11.1 fL (7.9-10.8); MONOCYTES # (AUTO) 0.4 10^3/uL (0.0-1.0); MONOCYTES % (AUTO) 5.6 %; NEUTROPHILS # (AUTO) 4.7 10^3/uL (1.5-6.6); NEUTROPHILS % (AUTO) 60.8 %; PLT - PLATELET COUNT 312 10^3/uL (130-450); RED BLOOD COUNT 4.42 10^6/uL (4.20-5.40); RED CELL DISTRIBUTION WIDTH 11.7 % (12.0-15.0); WHITE BLOOD COUNT 7.7 x10^3/uL (4.8-10.8)
[2021-05-06 08:49] LABS: BILIRUBIN,URINE NEGATIVE (NEGATIVE); CLARITY,URINE CLEAR (CLEAR); GLUCOSE, URINE (UA) NEGATIVE (NEGATIVE); KETONES,URINE (UA) NEGATIVE (NEGATIVE); LEUKOCYTE ESTERASE, URINE NEGATIVE (NEGATIVE); NITRITE,URINE NEGATIVE (NEGATIVE); OCCULT BLOOD,URINE TRACE-INTA (NEGATIVE); PH,URINE 7.5 PH (5.0-7.5); PROTEIN,URINE NEGATIVE (NEGATIVE); UROBILINOGEN,URINE 0.2 (NORMAL) E.U./dL (NORMAL)
[2021-05-06 08:51] LABS: HCG UR QUAL NEGATIVE
[2021-05-06 08:58] LABS: ALBUMIN 4.4 g/dL (3.2-5.5); ALBUMIN/GLOBULIN RATIO 1.3 (1.0-2.2); BILIRUBIN,TOTAL 0.4 mg/dL (0.2-1.0); CALCIUM 9.4 mg/dL (8.5-10.3); CREATININE 0.8 mg/dL (0.4-1.0); POTASSIUM 3.5 mmol/L (3.5-5.0); TOTAL PROTEIN 7.9 g/dL (6.7-8.2)
--- NOTE | 2021-05-06 09:10 | ED Physician Documentation ---
PD HPI ABD PAIN - Stated complaint Stated Complaint: R SIDE ABDOMINAL PX - Chief complaint Chief Complaint: Abd Pain - History obtained from History obtained from: Patient - History of Present Illness Timing - onset: Today Timing - duration: Hours Timing - details: Abrupt onset, Still present Quality: Aching, Sharp, Pain Location: RLQ, Suprapubic Radiation: No: Chest, Lower back Improved by: Laying still. No: Eating Worsened by: Moving, Palpation. No: Eating Associated symptoms: No: Fever, Nausea, Vomiting, Dizzy, Near syncope / syncope Similar symptoms before: Diagnosis (had similar symptoms with ovarian cyst that was large in the past. Resolved without surgery.) Recently seen: Not recently seen Review of Systems Constitutional: denies: Fever, Chills Nose: denies: Rhinorrhea / runny nose, Congestion Throat: denies: Sore throat Respiratory: denies: Cough GI: denies: Abdominal Pain, Nausea, Vomiting : denies: Dysuria, Discharge, Vaginal bleeding Skin: denies: Rash, Lesions PD PAST MEDICAL HISTORY - Past Medical History Past Medical History: Yes Cardiovascular: None Respiratory: None Neuro: None Endocrine/Autoimmune: None GI: GERD, Other INFECTION PREVENTION COORDINATOR: Fibroids : None HEENT: Chronic vision loss Psych: Depression, Anxiety, Panic attacks Musculoskeletal: Chronic back pain Derm: None - Past Surgical History Past Surgical History: Yes General: Cholecystectomy /INFECTION PREVENTION COORDINATOR: section, Tubal ligation - Present Medications Home Medications: Ambulatory Orders Medication Instructions Recorded Confirmed Ibuprofen 2 - 3 tab PO Q6H PRN 10/03/18 05/06/21 Multivitamin [Multiple Vitamins] 1 each PO DAILY 10/03/18 05/06/21 Docusate Sodium 100Mg Capsule 100 mg PO DAILY #20 cap 05/06/21 [Colace 100Mg Capsule] HYDROcod/ACETAM 5/325 [[place] 5/325] 1 ea PO Q6H PRN #14 tablet 05/06/21 Lactobacillus Combination No.4 1 each PO DAILY 05/06/21 05/06/21 [Probiotic] Naproxen 500 mg PO BID 7 Days #14 tab 05/06/21 Omeprazole Magnesium 20 mg PO DAILY 05/06/21 05/06/21 Sucralfate [Carafate] 1 tablet PO ACHS 05/06/21 05/06/21 - Allergies Allergies/Adverse Reactions: Allergies Allergy/AdvReac Type Severity Reaction Status Date / Time Sulfa (Sulfonamide Allergy Intermediate Anaphylaxis Verified 05/06/21 08:19 Antibiotics) - Social History Does the pt smoke?: No Smoking Status: Never smoker Does the pt drink ETOH?: Yes Does the pt have substance abuse?: No - Immunizations Immunizations are current?: Yes - POLST Patient has POLST: No PD ED PE NORMAL - Vitals Vital signs reviewed: Yes - General General: Alert and oriented X 3, No acute distress, Well developed/nourished - Neck Neck: Supple, no meningeal sign, No adenopathy - Cardiac Cardiac: RRR, No murmur - Respiratory Respiratory: Clear bilaterally, Other (lower abd) - Abdomen Abdomen: Soft, Non tender - Female Female : Deferred - Rectal Rectal: Deferred - Back Back: No CVA TTP - Derm Derm: Normal color, Warm and dry, No rash - Extremities Extremities: Normal ROM s pain, No edema, No calf tenderness / cord - Neuro Neuro: Alert and oriented X 3, No motor deficit, Normal speech Results - Vitals Vitals: Vital Signs - 24 hr 05/06/21 05/06/21 05/06/21 08:16 08:38 10:37 Temperature 36.9 C 36.4 C L Heart Rate 92 82 68 Respiratory 15 18 16 Rate Blood Pressure 136/75 H 138/91 H 140/99 H O2 Saturation 97 100 100 05/06/21 05/06/21 11:54 13:00 Temperature 36.5 C Heart Rate 61 60 Respiratory 16 12 Rate Blood Pressure 146/82 H 134/84 H O2 Saturation 99 100 Oxygen O2 Source Room air - Labs Labs: Laboratory Tests 05/06/21 05/06/21 05/06/21 08:28 08:35 08:35 WBC 7.7 RBC 4.42 Hgb 14.0 Hct 41.5 MCV 93.9 MCH 31.7 H MCHC 33.7 RDW 11.7 L Plt Count 312 MPV 11.1 H Neut # (Auto) 4.7 Lymph # (Auto) 2.4 Morton # (Auto) 0.4 Eos # (Auto) 0.1 Baso # (Auto) 0.0 Absolute Nucleated RBC 0.00 Nucleated RBC % 0.0 Sodium 139 Potassium 3.5 Chloride 103 Carbon Dioxide 25 Anion Gap 11.0 BUN 13 Creatinine 0.8 Estimated GFR (MDRD) 77 L Glucose 119 H Calcium 9.4 Total Bilirubin 0.4 AST 14 ALT 15 Alkaline Phosphatase 101 Total Protein 7.9 Albumin 4.4 Globulin 3.5 Albumin/Globulin Ratio 1.3 Lipase 35 Urine Color YELLOW Urine Clarity CLEAR Urine pH 7.5 Ur Specific [place] 1.015 Urine Protein NEGATIVE Urine Glucose (UA) NEGATIVE Urine Ketones NEGATIVE Urine Occult Blood TRACE-INTA Urine Nitrite NEGATIVE Urine Bilirubin NEGATIVE Urine Urobilinogen 0.2 (NORMAL) Ur Leukocyte Esterase NEGATIVE Ur Microscopic Review NOT INDICATED Urine Culture Comments NOT INDICATED Urine HCG, Qual NEGATIVE - Rads (name of study) pelvic U/S Radiology: Prelim report reviewed (no acute findings.), See rad report abd CT Radiology: Prelim report reviewed (normal appendix. Stranding around the sigmoid colon area, consider colitis (versus artifact). ), See rad report PD MEDICAL DECISION MAKING - ED course Complexity details: reviewed results (given her pain in the location, I would clinically favor colitis finding on the CT. No other process identified. ), considered differential (consider ovarian cyst, internal bleeding, colitis, diverticulitis, kidney stone, other process. ), d/w patient Departure - Departure Disposition: Home, Self Care Clinical Impression: Lower abdominal pain, Colitis Condition: Stable Record reviewed to determine appropriate education?: Yes Instructions: ED Diverticulitis Prescriptions: Docusate Sodium 100Mg Capsule [Colace 100Mg Capsule] 100 mg PO DAILY #20 cap Naproxen 500 mg PO BID 7 Days #14 tab HYDROcod/ACETAM 5/325 [[place] 5/325] 1 ea PO Q6H PRN #14 tablet PRN Reason: Pain Comments: Your testing showed some inflammatory changes in the sigmoid colon without any obvious localized infection. Commonly this would be treated with anti-inflammatories and some stool softeners and not necessarily antibiotics and less your worsening. Stay well-hydrated. Continue usual medications. Use naproxen twice daily with food for the next week. Add Tylenol every 4-6 hours if needed for pain. Use hydrocodone if needed for worse pain in the short-term. Add docusate stool softener daily for the next week as well. I would anticipate improvement over the next few days. Return or recheck if not improving in that timeframe and return if worse. I transmitted your prescriptions to the pharmacy. I am prescribing a short course of narcotic pain medication for you. These are potentially dangerous and addictive medications that should be used carefully. These medications may constipate you. Take an bygn-vkq-hibmibb stool softener such as docusate twice daily with plenty of water while taking these medications. If you go 24 hours without a bowel movement, take [id number] MiraLAX, per package instructions. Do not drink or drive while taking these medications. If you received narcotic or sedating medications while in the emergency department do not drive for 24 hours. Store this medication in a safe, secure place and out of reach of children. It is a violation of federal law to give or sell this medication to another person or to use in a manner other than prescribed. The ED will not refill narcotic prescriptions, including prescriptions lost or stolen. You can dispose of unwanted medications at the [facility]'s office or at several pharmacies such as [facility]. Discharge Date/Time: 05/06/21 13:00
[2021-05-06] MEDS ORDERED: KETOROLAC 30 MG/ML VIAL IVP STA (09:28)
--- NOTE | 2021-05-06 10:44 | Ultrasound Report ---
PROCEDURE: Pelvic w/Transvag+Doppler Comp INDICATIONS: RLQ pain for days TECHNIQUE: Real-time scanning was performed of the pelvic organs, with image documentation. Additional endovagi nal scanning was necessary due to incomplete visualization of the adnexal and endometrial structures by transabdominal scanning. COMPARISON: 08/22/2018 FINDINGS: No pathologic free abdominal or pelvic fluid. Uterus: Uterus is normal in size at 8.2 x 4.5 x 5.0 cm. Heterogeneous uterine echotexture without fo horacio mass lesions. The endometrium measures 5 mm in combined thickness. Multiple nabothian cysts are present. Ovaries: Right ovary measures 2.1 x 1.5 x 1.3 cm with ovarian volume of 2 mL. Left ovary measures 2. 4 x 1.6 x 1.4 cm with ovarian volume of 3 mL. No suspicious ovarian or adnexal mass lesions. Normal v ascular waveforms are present bilaterally. IMPRESSION: Pelvis without acute sonographic abnormalities. Reviewed by: Law Bonilla MD on 05/06/2021 10:42 AM PST Approved by: Law Bonilla MD on 05/06/2021 10:42 AM PST Station ID: [id number]
[2021-05-06] MEDS ORDERED: IOVERSOL 320 100 ML VIAL IVP ONE ×2 (11:28→12:28)
--- NOTE | 2021-05-06 11:59 | CT Report ---
PROCEDURE: Abdomen/Pelvis W INDICATIONS: lower/right abd pain for few days CONTRAST: IV CONTRAST: Optiray 320 ml: 100 PO CONTRAST: *NO PO CONTRAST TECHNIQUE: After the administration of weight appropriate dose of intravenous contrast, 5 mm thick sections acqu ired from the diaphragms to the symphysis. 5 mm thick coronal and sagittal reformats were acquired. For radiation dose reduction, the following was used: automated exposure control, adjustment of mA and/or kV according to patient size. COMPARISON: None. FINDINGS: Image quality: Mild image degradation secondary to motion artifact. ABDOMEN: Lung bases: Lung bases are clear. Heart size is normal. Small hiatal hernia. Solid organs: Liver and spleen are normal in size and enhancement. Small focus of focal fatty infilt ration near the falciform ligament. Gallbladder is surgically absent Biliary system is non dilated. Pancreas enhances normally. No adrenal nodules. Kidneys demonstrate normal size and enhancement, without hydronephrosis. Peritoneum and bowel: Bowel loops demonstrate normal wall thickness and caliber. No free fluid or a ir. Normal appendix. There is suggestion of minimal stranding surrounding the distal sigmoid colon w hich is favored to represent motion artifact as similar findings noted over the margin of the adjacen t uterus. Nodes and vessels: No retroperitoneal or mesenteric adenopathy by size criteria. Aorta and inferior vena cava are normal in size. Miscellaneous: No ventral hernias. PELVIS: Genitourinary: Bladder wall thickness is normal. Miscellaneous: No inguinal hernias or adenopathy. Bones: No suspicious bony lesions. No acute vertebral body compression fractures. IMPRESSION: 1. Suggestion of possible stranding surrounding the sigmoid colon which is favored to represent artif act from motion in the region. Similar finding noted visualized in the adjacent uterus. Colitis may h ave a similar appearance but is felt to be less likely given presence of motion artifact. 2. Normal appendix. 3. Status post cholecystectomy. 4. Small hiatal hernia. Reviewed by: Law Bonilla MD on 05/06/2021 11:58 AM PST Approved by: Law Bonilla MD on 05/06/2021 11:58 AM PST Station ID: [id number]
[2021-05-06 13:22] VITALS: BP 134/84
== END 2021-05-06 13:00 | disposition home or self-care (01) ==
LOC: ED 08:09
DX: K52.9 Noninfective gastroenteritis and colitis, unspecified (principal)
CPT/HCPCS: 36415; 51798; 74177; 76830; 76856; 80053; 81003; 81025; 83690; 85025; 93975; 96374; 99284; Q9967; 81001; 87086

== ENCOUNTER 2021-05-22 08:00 | Outpatient (CLI) | payer MEDICAID ==
[2021-05-22 21:53] LABS: CHLAMYDIA TRACHOMATIS DNA NEGATIVE (NEGATIVE); NEISSERIA GONORRHOEAE DNA NEGATIVE (NEGATIVE); TRICHOMONAS VAGINALIS DNA NEGATIVE (NEGATIVE)
[2021-05-22 22:40] LABS: BACTERIAL VAGINOSIS DNA NEGATIVE (NEGATIVE); CANDIDA GLABRATA DNA NEGATIVE (NEGATIVE); CANDIDA GROUP DNA POSITIVE (NEGATIVE); CANDIDA KRUSEI DNA NEGATIVE (NEGATIVE); TRICHOMONAS VAGINALIS DNA NEGATIVE (NEGATIVE)
== END 2021-05-22 23:59 | disposition home or self-care (01) ==
LOC: LAB 08:00
PROVIDERS: ATTEND Obstetrics & Gynecology
DX: Z11.3 Encounter for screening for infections with a predominantly sexual mode of transmission (principal)
CPT/HCPCS: 87491; 87591; 87661; 87801

== ENCOUNTER 2021-08-14 10:12 | Outpatient (CLI) | payer MEDICAID ==
[2021-08-14 12:08] LABS: BASOPHILS # (AUTO) 0.1 10^3/uL (0.0-0.1); BASOPHILS % (AUTO) 0.8 %; EOSINOPHILS # (AUTO) 0.1 10^3/uL (0.0-0.7); EOSINOPHILS % (AUTO) 0.8 %; HCT - HEMATOCRIT 38.6 % (37.0-47.0); HGB - HEMOGLOBIN 12.8 g/dL (12.0-16.0); LYMPHOCYTES # (AUTO) 1.5 10^3/uL (1.5-3.5); LYMPHOCYTES % (AUTO) 25.1 %; MEAN CORPUSCULAR HEMOGLOBIN 31.1 pg (27.0-31.0); MEAN CORPUSCULAR HGB CONC 33.2 g/dL (32.0-36.0); MEAN CORPUSCULAR VOLUME 93.9 fL (81.0-99.0); MEAN PLATELET VOLUME 11.5 fL (7.9-10.8); MONOCYTES # (AUTO) 0.4 10^3/uL (0.0-1.0); MONOCYTES % (AUTO) 7.2 %; NEUTROPHILS % (AUTO) 65.9 %; PLT - PLATELET COUNT 267 10^3/uL (130-450); RED BLOOD COUNT 4.11 10^6/uL (4.20-5.40); RED CELL DISTRIBUTION WIDTH 11.9 % (12.0-15.0); WHITE BLOOD COUNT 6.1 x10^3/uL (4.8-10.8)
[2021-08-14 12:27] LABS: BILIRUBIN,URINE NEGATIVE (NEGATIVE); GLUCOSE, URINE (UA) NEGATIVE (NEGATIVE); KETONES,URINE (UA) NEGATIVE (NEGATIVE); LEUKOCYTE ESTERASE, URINE NEGATIVE (NEGATIVE); NITRITE,URINE NEGATIVE (NEGATIVE); OCCULT BLOOD,URINE TRACE-INTA (NEGATIVE); PROTEIN,URINE NEGATIVE (NEGATIVE); UROBILINOGEN,URINE 0.2 (NORMAL) E.U./dL (NORMAL)
[2021-08-14 12:29] LABS: ALBUMIN 4.2 g/dL (3.2-5.5); ALBUMIN/GLOBULIN RATIO 1.4 (1.0-2.2); BILIRUBIN,TOTAL 0.5 mg/dL (0.2-1.0); CALCIUM 8.7 mg/dL (8.5-10.3); CREATININE 0.7 mg/dL (0.4-1.0); POTASSIUM 3.8 mmol/L (3.5-5.0); TOTAL PROTEIN 7.3 g/dL (6.7-8.2)
[2021-08-14 12:38] LABS: THYROID STIMULATING HORMONE 2.42 uIU/mL (0.34-5.60)
[2021-08-14 12:58] LABS: BACTERIA,URINE None Seen /HPF (None Seen); CLARITY,URINE HAZY (CLEAR); RBC,URINE 0-5 /HPF (0-5); SQUAMOUS EPITHELIAL CELL,UR MOD Squamous (<= Few); WBC,URINE 0-3 /HPF (0-5)
[2021-08-14 13:19] LABS: ESTIMATED AVERAGE GLUCOSE 100 mg/dL (70-100); HEMOGLOBIN A1c% 5.1 % (4.27-6.07)
[2021-08-14 18:37] LABS: CHLAMYDIA TRACHOMATIS DNA NEGATIVE (NEGATIVE); NEISSERIA GONORRHOEAE DNA NEGATIVE (NEGATIVE); TRICHOMONAS VAGINALIS DNA NEGATIVE (NEGATIVE)
[2021-08-16 12:47] LABS: HSV 1 IGG TYPE SPECIFIC AB 8.38 index; HSV 2 IGG TYPE SPECIFIC AB 16.7 index
== END 2021-08-14 10:13 | disposition home or self-care (01) ==
LOC: LAB.N 10:12
PROVIDERS: ATTEND Nurse Practitioner
DX: R10.9 Unspecified abdominal pain (principal); E66.9 Obesity, unspecified; Z11.3 Encounter for screening for infections with a predominantly sexual mode of transmission; R53.83 Other fatigue
CPT/HCPCS: 36415; 80053; 81001; 81003; 81599; 82150; 83036; 83690; 84443; 85025; 86592; 86695; 86696; 87086; 87491; 87591; 87661

== ENCOUNTER 2021-09-04 08:31 | Outpatient (CLI) | payer MEDICAID ==
--- NOTE | 2021-09-05 10:12 | Mammography Report ---
BILATERAL DIGITAL SCREENING MAMMOGRAM 3D/2D: 09/04/2021 CLINICAL: Routine screening. Comparison is made to exams dated: 09/03/2020 mammogram, 08/16/2019 mammogram, and 03/09/2018 mammogram - [facility]. The tissue of both breasts is heterogeneously dense. This may lower the sensitivity of mammography. No significant masses, calcifications, or other findings are seen in either breast. There has been no significant interval change. IMPRESSION: NEGATIVE There is no mammographic evidence of malignancy. A 1 year screening mammogram is recommended. This exam was interpreted at Station ID: [id number]. NOTE: For mammograms, a report in lay terms will be sent to the patient. Approximately 15% of breast malignancies will not be visualized mammographically. In the management of a palpable breast mass, a negative mammogram must not discourage biopsy of a clinically suspicious lesion. Electronically Signed By: Ephraim Walker M.D. ar/penrad:09/04/2021 10:16:31 ACR BI-RADS Category 1: Negative 3341F PARENCHYMAL PATTERN: (D) - The breast(s) demonstrate(s) heterogeneously dense fibroglandular juanito ford. BI-RADS CATEGORY: (1) - 1 RECOMMENDATION: (ANNUAL) - Recommend routine annual screening mammography. [id number] 1 year screening LATERALITY: (B)
== END 2021-09-04 08:32 | disposition home or self-care (01) ==
LOC: DI.N 08:31
DX: Z12.31 Encounter for screening mammogram for malignant neoplasm of breast (principal)

== ENCOUNTER 2022-10-21 08:45 | Outpatient (CLI) | payer MEDICAID ==
--- NOTE | 2022-10-22 10:15 | Mammography Report ---
BILATERAL DIGITAL SCREENING MAMMOGRAM 3D/2D: 10/21/2022 CLINICAL: Routine screening. Comparison is made to exams dated: 09/04/2021 mammogram, 09/03/2020 mammogram, 08/16/2019 mammogram, an d 03/09/2018 mammogram - [facility]. Both breasts are heterogeneously dense, which may obscure small masses (category c / 51-75% glandular tissue). No significant masses, calcifications, or other findings are seen in either breast. There has been no significant interval change. IMPRESSION: NEGATIVE There is no mammographic evidence of malignancy. A 1 year screening mammogram is recommended. Based on the Tyrer Cuzick model (a risk assessment model) the patients lifetime risk is 13.6% and he r 10 year risk is 2.9%. According to the ACR, ACS, and NCCN guidelines, an annual breast MRI exam sara ng with mammogram is recommended if the patients lifetime risk is 20% or greater. This exam was interpreted at Station ID: [id number]. NOTE: For mammograms, a report in lay terms will be sent to the patient. Approximately 15% of breast malignancies will not be visualized mammographically. In the management of a palpable breast mass, a negative mammogram must not discourage biopsy of a clinically suspicious lesion. Electronically Signed By: [place] anne/venancio:10/22/2022 07:32:35 letter sent: No_Letter ACR BI-RADS Category 1: Negative 3341F PARENCHYMAL PATTERN: (D) - The breast(s) demonstrate(s) heterogeneously dense fibroglandular juanito ford. BI-RADS CATEGORY: (1) - 1 Mammogram [id number] 1 year screening LATERALITY: (B)
== END 2022-10-21 08:46 | disposition home or self-care (01) ==
LOC: DI.N 08:45
DX: Z12.31 Encounter for screening mammogram for malignant neoplasm of breast (principal)

== ENCOUNTER 2022-12-01 08:45 | Outpatient (CLI) | payer MEDICAID | END 2022-12-01 08:46 | disposition home or self-care (01) | LOC: MAC.INF 08:45 | PROVIDERS: ATTEND Nurse Practitioner | DX: R00.2 Palpitations (principal) | CPT/HCPCS: 93246 ==

== ENCOUNTER 2022-12-21 10:00 | Outpatient (CLI) | payer MEDICAID | END 2022-12-21 10:01 | disposition home or self-care (01) | LOC: MAC.INF 10:00 | PROVIDERS: ATTEND Nurse Practitioner | DX: I49.1 Atrial premature depolarization (principal); I49.3 Ventricular premature depolarization | CPT/HCPCS: 93248 ==

== ENCOUNTER 2023-03-02 07:16 | Outpatient (CLI) | payer MEDICAID ==
[2023-03-02 07:26] LABS: BASOPHILS # (AUTO) 0.1 10^3/uL (0.0-0.1); BASOPHILS % (AUTO) 0.7 %; EOSINOPHILS # (AUTO) 0.2 10^3/uL (0.0-0.7); EOSINOPHILS % (AUTO) 2.1 %; HCT - HEMATOCRIT 38.1 % (37.0-47.0); LYMPHOCYTES # (AUTO) 2.3 10^3/uL (1.5-3.5); LYMPHOCYTES % (AUTO) 32.3 %; MEAN CORPUSCULAR HEMOGLOBIN 32.3 pg (27.0-31.0); MEAN CORPUSCULAR HGB CONC 34.1 g/dL (32.0-36.0); MEAN CORPUSCULAR VOLUME 94.8 fL (81.0-99.0); MEAN PLATELET VOLUME 10.6 fL (7.9-10.8); MONOCYTES # (AUTO) 0.6 10^3/uL (0.0-1.0); MONOCYTES % (AUTO) 8.4 %; NEUTROPHILS # (AUTO) 3.9 10^3/uL (1.5-6.6); NEUTROPHILS % (AUTO) 56.2 %; PLT - PLATELET COUNT 283 10^3/uL (130-450); RED BLOOD COUNT 4.02 10^6/uL (4.20-5.40); RED CELL DISTRIBUTION WIDTH 11.7 % (12.0-15.0)
[2023-03-02 07:45] LABS: ALBUMIN/GLOBULIN RATIO 1.5 (1.0-2.2); ALKALINE PHOSPHATASE 109 IU/L (42-121); ALT ALANINE AMINOTRANSFERASE 13 IU/L (10-60); AST ASPARTATE AMINOTRANSFERASE 12 IU/L (10-42); BILIRUBIN,TOTAL 0.5 mg/dL (0.2-1.0); BUN - BLOOD UREA NITROGEN 8 mg/dL (6-20); CALCIUM 8.9 mg/dL (8.5-10.3); CARBON DIOXIDE - CO2 27 mmol/L (21-32); CHLORIDE 106 mmol/L (101-111); CHOL/HDL RATIO 3.1 (<4.4); CHOLESTEROL 186 mg/dL; CREATININE 0.7 mg/dL (0.6-1.3); GFR - MDRD 89 (>89); GLUCOSE 104 mg/dL (74-104); HDL CHOLESTEROL 60 mg/dL; LDL CHOLESTEROL,CALCULATED 104 mg/dL; LDL/HDL RATIO 1.7 (<4.4); POTASSIUM 3.9 mmol/L (3.5-4.5); SODIUM 138 mmol/L (135-145); TOTAL PROTEIN 6.6 g/dL (6.4-8.9); TRIGLYCERIDES 109 mg/dL (48-352); VLDL CHOLESTEROL 22 mg/dL
== END 2023-03-02 07:17 | disposition home or self-care (01) ==
LOC: LAB 07:16
PROVIDERS: ATTEND Physician Assistant
DX: E03.9 Hypothyroidism, unspecified (principal); R03.0 Elevated blood-pressure reading, without diagnosis of hypertension; R53.83 Other fatigue
CPT/HCPCS: 36415; 80053; 80061; 83721; 84443; 85025

== ENCOUNTER 2023-04-24 09:59 | Outpatient (CLI) | payer MEDICAID ==
--- NOTE | 2023-04-25 15:55 | XRAY Report ---
PROCEDURE: Hips 2V BILAT INDICATIONS: LOW BACK PAIN,CHRONIC TECHNIQUE: 2 bilateral views of the hip were acquired. COMPARISON: None. FINDINGS: Bones: No fractures or dislocations. There is mild bilateral hip joint space narrowing. No collar os teophytes. No suspicious bony lesions. Soft tissues: No suspicious soft tissue calcifications or masses. IMPRESSION: Trace bilateral hip osteoarthritis. Reviewed by: Luiza Cleaning MD on 04/25/2023 3:54 PM PST Approved by: Luiza Cleaning MD on 04/25/2023 3:54 PM PST Station ID: [id number]
--- NOTE | 2023-04-25 15:56 | XRAY Report ---
PROCEDURE: Lumbar Spine 2 View INDICATIONS: LOW BACK PAIN,CHRONIC TECHNIQUE: 3 views of the lumbar spine were acquired. COMPARISON: None. FINDINGS: Bones: 5 ljg-wes-mfcrezs vertebrae are present. There is normal bony alignment. No vertebral body compression fractures. No suspicious bony lesions. There is mild intervertebral disc space narrowin g and sclerosis at L5-S1. Soft tissues: Overlying bowel gas pattern is normal. No suspicious soft tissue calcifications. IMPRESSION: Mild degenerative change at L5-S1. No compression deformities. Reviewed by: Luiza Cleaning MD on 04/25/2023 3:55 PM PST Approved by: Luiza Cleaning MD on 04/25/2023 3:55 PM [facility] Station ID: [id number]
== END 2023-04-24 10:00 | disposition home or self-care (01) ==
LOC: DI 09:59
PROVIDERS: ATTEND Physician Assistant
DX: M47.817 Spondylosis without myelopathy or radiculopathy, lumbosacral region (principal); M16.0 Bilateral primary osteoarthritis of hip

== ENCOUNTER 2023-10-27 08:04 | Outpatient (CLI) | payer MEDICAID ==
--- NOTE | 2023-10-28 09:13 | Mammography Report ---
BILATERAL DIGITAL SCREENING MAMMOGRAM 3D/2D: 10/27/2023 CLINICAL: Routine screening. Comparison is made to exams dated: 10/21/2022 mammogram, 09/04/2021 mammogram, 09/03/2020 mammogram, 11/19 mammogram, and 03/09/2018 mammogram - [facility]. Both breasts are heterogeneously dense, which may obscure small masses (category c / 51-75% glandular tissue). No significant masses, calcifications, or other findings are seen in either breast. There has been no significant interval change. IMPRESSION: NEGATIVE There is no mammographic evidence of malignancy. A 1 year screening mammogram is recommended. Based on the Tyrer Cuzick model (a risk assessment model) the patient's lifetime risk is 13.5% and he r 10 year risk is 3.0%. According to the ACR, ACS, and NCCN guidelines, an annual breast MRI exam sara ng with mammogram is recommended if the patient's lifetime risk is 20% or greater. This exam was interpreted at Station ID: [id number]. NOTE: For mammograms, a report in lay terms will be sent to the patient. Approximately 15% of breast malignancies will not be visualized mammographically. In the management of a palpable breast mass, a negative mammogram must not discourage biopsy of a clinically suspicious lesion. Electronically Signed By: Ephraim mixon/venancio:10/27/2023 09:31:21 letter sent: No_Letter ACR BI-RADS Category 1: Negative 3341F PARENCHYMAL PATTERN: (D) - The breast(s) demonstrate(s) heterogeneously dense fibroglandular juanito ford. BI-RADS CATEGORY: (1) - 1 RECOMMENDATION: (ANNUAL) - Recommend routine annual screening mammography. [id number] 1 year screening LATERALITY: (B)
== END 2023-10-27 08:05 | disposition home or self-care (01) ==
LOC: DI 08:04
DX: Z12.31 Encounter for screening mammogram for malignant neoplasm of breast (principal); R92.333 Mammographic heterogeneous density, bilateral breasts

== ENCOUNTER 2023-12-21 22:05 | Outpatient (CLI) | payer MEDICAID | END 2023-12-21 22:06 | disposition left against medical advice (07) | LOC: EMS 22:05 | DX: R07.89 Other chest pain (principal); F41.9 Anxiety disorder, unspecified ==